=== PATIENT | male | born 1995 | race Caucasian/White ===

== ENCOUNTER 2016-09-03 06:08 | Day surgery (SDC) | payer OTHER ==
[2016-09-03] MEDS ORDERED: ACETAMINOPHEN 1,000 MG/100 ML 100 ML IV ONE (06:30)
[2016-09-03] MEDS ORDERED: CELECOXIB 100 MG CAPSULE PO ONE (06:30)
[2016-09-03] MEDS ORDERED: ceFAZolin 2 GM/50 ML 50 ML IV ONE (06:31)
[2016-09-03] MEDS ORDERED: LACTATED RINGERS 1,000 ML IV ONE ×2 (06:36→09:01)
[2016-09-03] MEDS ORDERED: PROPOFOL 200 MG/20 ML VIAL IVP ONE (08:15)
[2016-09-03] MEDS ORDERED: fentaNYL 100 MCG/2 ML VIAL IVP ONE (08:15)
[2016-09-03] MEDS ORDERED: DEXAMETHASONE 4 MG/ML VIAL IVP ONE (08:15)
[2016-09-03] MEDS ORDERED: MIDAZOLAM 2 MG/2 ML VIAL IVP ONE (08:15)
[2016-09-03] MEDS ORDERED: LIDOCAINE-MPF 2% 5 ML VIAL IM ONE (08:15)
[2016-09-03] MEDS ORDERED: ONDANSETRON 4 MG/2 ML VIAL IVP ONE (08:15)
[2016-09-03] MEDS ORDERED: oxyCOD/ACETAMIN 5 MG/325 MG TABLET PO ONE (11:07)
[2016-09-03 11:35] VITALS: BP 129/63
--- NOTE | 2016-09-07 07:55 | OPERATIVE REPORT ---
DATE OF SURGERY: 09/03/2016 00:00:00 [facility] . PREOPERATIVE DIAGNOSES 1. Left knee medial meniscus tear. 2. Left knee anterior cruciate ligament sprain. POSTOPERATIVE DIAGNOSES 1. Left knee medial meniscus tear. 2. Left knee medial plica. OPERATIONS PERFORMED 1. Left knee arthroscopy with medial meniscus debridement. 2. Left knee arthroscopy with medial plica excision. PRIMARY SURGEON: Amaya Aldridge MD SENIOR SOUS CHEF SURGEON: Marco Antonio Mello DO ANESTHESIA BY: Jakob Shanks CRNA. CIRCULATING NURSE 1. Willie Anthony RN 2. Mikaela Cannon RN HUMAN RESOURCES PROFESSIONAL 1. Margarita Beard RN, BSN 2. Susanna Grande CST ANESTHESIA 1. General via LMA. 2. Femoral nerve block. INTRAVENOUS FLUIDS: Lactated Ringer's 1100 mL. ESTIMATED BLOOD LOSS: 5 mL. ANTIBIOTICS: Ancef 2 grams IV. TOURNIQUET: None. IMPLANTS: None. SPECIMENS: None. COMPLICATIONS: None. INDICATIONS: This is a 21-year-old male with history of left knee pain, as well as sensation of instability since landing from a jump while playing basketball approximately 2 years ago. Patient has continued to have symptoms despite activity modification, nonsteroidal antiinflammatories, and physical therapy. Risks, benefits, indications, and expectations of surgery discussed with patient, to include but not limited to infection, bleeding, damage to neurovascular structures, need for additional surgery, persistent or worsening pain, recurrent meniscus or ligament tears, posttraumatic arthritis, decreased range of motion or stiffness, iatrogenic chondromalacia, iatrogenic fracture, deep venous thrombosis, pulmonary embolism, loss of limb, and loss of life. All questions answered, patient elected to proceed with surgery and informed consent obtained. PROCEDURE IN DETAIL: Patient was met in the preoperative holding area on the morning of surgery, where we confirmed that we had the correct patient, planned to do the correct procedure, and had the correct extremity, which was the left lower extremity identified. Prior to the patient receiving any medications, the operative extremity was initialed by the surgeon. The patient then under light sedation had a femoral nerve block performed by Anesthesia. The patient was then brought back to the operating room in stable condition and placed supine on the operating room table. All bony prominences were well padded and sequential compression devices were placed on the bilateral lower extremities. General anesthesia was induced without complication, and an LMA was placed. The left lower extremity was then examined under anesthesia, and it was noted to have a 1A Juvencio, negative anterior drawer, negative posterior drawer, and negative pivot shift. The knee was stable to varus and valgus at 0 and 30 degrees. The left lower extremity was then prepped and draped in the usual sterile fashion. After final draping, additional ChloraPrep was utilized on the operative site. Three minutes were allowed to elapse to enable to the ChloraPrep to dry. We held a surgical timeout, where we confirmed that we had the correct patient, planned to do the correct procedure, and had the correct extremity identified. We also confirmed that the patient received preoperative antibiotics, and that all necessary gear was in the room and confirmed sterile, and that no members of the operative team had any concerns. We began by making a standard anterolateral portal about the left knee by first sharply incising with a #11 blade and then introducing the trochar with a blunt introducer into the patellofemoral joint. 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 The lateral aspect of the patella and trochlea were without findings. On the medial aspect, there was a plica or shelf of tissue that appeared to be abrading the patella, causing the small area of chondromalacia. We then continued to the lateral gutter, which was without loose bodies or other findings. We then continued into the medial compartment of the knee, where under direct visualization, we made a standard anterior and medial incision by again after needle localization incising with a #11 blade and then introducing the blunt introducer to further establish the portal. We then introduced a probe and continued our examination. The medial meniscus was notable for a complex tear in the posterior horn aspect, with both vertical and horizontal components. We then continued our exam into the notch. The anterior aspect of the ACL demonstrated some slight laxity; however, the posterior aspect was intact. Again the patient had a negative pivot shift and negative Juvencio's under anesthesia. A decision was made not to proceed with an ACL reconstruction. We then continued our exam into the lateral compartment, which showed no significant lesions of the lateral femoral condyle, lateral tibial plateau, or meniscus. We then inserted biters and debrided back the medial meniscus to a stable rim. We then inserted the sucker shaver and removed the loose pieces of meniscus, as well as to round out the edges of the remaining rim of meniscus. We then utilized the sucker shaver to debride back the plica. All arthroscopic instruments were then removed from the knee. The portals were closed utilizing 3-0 Monocryl in buried fashion. We then placed Mastisol and Steri-Strips over the incisions, followed by xerosis, plain gauze, an abdominal pad, and then placed a RAI hose over this. All sponge counts and needle counts were correct at the conclusion of the case. The patient was awakened from general anesthesia without complication and taken to the PACU in stable condition. POSTOPERATIVE PLAN: The patient will be weightbearing as tolerated on his left lower extremity. See the patient back in 5 days, at which time we will initiate physical therapy. Report edited and signed 09/08/2016 by Amaya Aldridge MD. JOB #: [id number] EXT JOB #:[id number] [id number]
== END 2016-09-03 06:09 | disposition home or self-care (01) ==
LOC: SDS 06:08
PROVIDERS: ATTEND Orthopaedic Surgery
PROC: 0SBD4ZZ Excision of Left Knee Joint, Percutaneous Endoscopic Approach (ICD-10-PCS; principal; 2016-09-03 07:30)
DX: S83.242A Other tear of medial meniscus, current injury, left knee, initial encounter (principal); M67.52 Plica syndrome, left knee
CPT/HCPCS: 29881; A9270; J0131; J0690; J7120